=== PATIENT | male | born 1995 | race Caucasian/White ===

== ENCOUNTER 2019-11-02 15:22 | Emergency (ER) | payer OTHER, SELFPAY ==
--- NOTE | 2019-11-02 15:36 | XR_ITS ---
PROCEDURE: XR CHEST 2V CLINICAL HISTORY: cough COMPARISON: XR CHEST 2V from 07/06/2019 FINDINGS: The cardiomediastinal silhouette and pulmonary vascularity are within normal limits. The lungs are clear without infiltrates, suspicious nodules, or pleural effusions. No acute bony abnormalities. IMPRESSION: No acute findings. Dictated by: Chencho Goldberg MD 11/02/2019 15:57 Electronically signed by Chencho Goldberg MD in [place] 11/02/2019 15:57
[2019-11-02 15:39] VITALS: BP 135/84; PULSE 78; RESP 20; TEMP 36.7; O2SAT 99; BMI 23.0
[2019-11-02 15:58] LABS: UTC Influenza A Antigen Negative (Negative)
[2019-11-02 16:01] LABS: UTC Influenza B Antigen Negative (Negative)
[2019-11-02 16:02] LABS: UTC Strep Screen (Rapid) Negative (Negative)
--- NOTE | 2019-11-02 16:09 | HMH.EDUTC ---
[facility] [place] Disposition Clinical Impression: Exposure to COVID-19 virus, Viral syndrome Asthma Qualifiers: Asthma severity: unspecified severity Asthma persistence: unspecified Asthma complication type: unspecified Qualified Code(s): J45.909 - Unspecified asthma, uncomplicated Disposition: Home, Self-Care Condition on Discharge: Good Instructions: Asthma -- Adult, DI for Viral Syndrome, Preventing the Spread of Coronavirus Discharge Instructions Additional Instructions: Drink plenty of fluids. Take tylenol or ibuprofen for pain or fever. Take the medications as directed. Follow up with your regular doctor. GO TO THE ER FOR ANY WORSENING SYMPTOMS Prescriptions: Albuterol Sulfate [Proair Digihaler] 2 puffs IH Q6HP PRN 30 Days #1 aer.pw.bas PRN Reason: Shortness Of Breath Transmission Status: Received by [facility] # methylPREDNISolone [Medrol] 4 mg PO DIRECTED 6 Days #21 tab.ds.pk Transmission Status: Received by [facility] # Azithromycin [Z-Quinton 250mg Tab*] 250 mg PO UD DOSE PK #6 tab Transmission Status: Received by [facility] # Referrals: Provider,Referral, [Primary Care Provider] - Forms: Work/School Release Time of Disposition: 16:14 Medical Decision Making - Medical Records Medical records reviewed: No: I reviewed the patient's medical records. - Jay Inquiry Pt receiving controlled substance: No Vital Signs: 11/02/19 15:39 11/02/19 16:18 Temperature 98.1 F 98.1 F Temperature Source Oral Pulse Rate 78 Pulse Rate [Right Brachial] 78 Respiratory Rate 20 20 Blood Pressure 135/84 Blood Pressure [Right Arm] 135/84 Blood Pressure Mean [Right Arm] 101 Blood Pressure Source [Right Arm] Automatic Cuff Blood Pressure Position [Right Arm] Sitting 02 Sat by Pulse Oximetry 99 Oxygen Delivery Method Room Air - Lab Data Lab Results 11/02/19 15:36: Influenza Type A Ag Negative, Influenza Type B Ag Negative 11/02/19 15:36: Strep Scn Rapid Clinic Negative Orders (Tests/Meds): ORDERS Category Date Time Status SARS-CoV-2, BRAD Stat Lab 11/02/19 15:40 Received Strep Screen Confirmation Stat Micro 11/02/19 15:36 Received [facility] [place] HPI - General Stated complaint: SIB,Body Pain,expose COVid-Wk ago Time Seen by Provider: 11/02/19 15:40 Mode of Arrival: Ambulatory Source of Information: Patient Limitations: No Limitations Description of Symptoms (Recalled from Triage Doc. by RN): PATIENT C/O SHORTNESS OF BREATH WITH EXERTION, FEVER, BODY ACHES, AND FATIGUE SINCE YESTERDAY. STATES HE WORKS AT [employer] WHERE THERE WAS A POSITIVE CASE HEENT Symptoms (Recalled from RN notes): No Resp Symptoms (Recalled from RN notes): Yes Skin Symptoms (Recalled from RN notes): No MS Symptoms (Recalled from RN notes): Yes Functional Status (Recalled from RN notes): WNL - History of Present Illness Provider Complaint: He is here to be tested for COVID-19. He was exposed to COVID last week. He has had a fever up to 100.8 and had body aches for the past 2 days. He has a history of asthma. He denies any shortness of breath or chest pain. - Related Data Previous Rx's Medication Instructions Recorded Albuterol Sulfate [Proair 2 puffs IH Q6HP PRN 30 Days #1 11/02/19 Digihaler] aer.pw.bas Azithromycin [Z-Quinton 250mg Tab*] 250 mg PO UD DOSE PK #6 tab 11/02/19 methylPREDNISolone [Medrol] 4 mg PO DIRECTED 6 Days #21 11/02/19 tab.ds.pk Allergies Allergy/AdvReac Type Severity Reaction Status Date / Time No Known Allergies Allergy Verified 01/14/19 10:50 - Worker's Comp Is this a Worker's Comp case?: No [facility] History - Hepatitis A Screen Drug use history?: No High risk sexual behaviors?: No History of sexually transmitted infection?: No Currently employed?: No Childcare worker?: No Do you have indoor plumbing?: Yes Do you have electricity?: Yes Attestation statement:: This patient has been screened for Hepatitis A risk factors.
[2019-11-02 16:18] VITALS: BP 135/84; PULSE 78; RESP 20; TEMP 36.7; O2SAT 99
[2019-11-04 13:33] LABS: Covid-19 Nasal PCR Sendout Lex NOT DETECTED
== END 2019-11-02 16:22 | disposition home or self-care (01) ==
PROVIDERS: Emergency Provider Nurse Practitioner Family
DX: Z20.828 Contact with and (suspected) exposure to other viral communicable diseases (principal); B34.9 Viral infection, unspecified; J45.909 Unspecified asthma, uncomplicated
CPT/HCPCS: 71046; 87804; 87880; 99202; U0004

== ENCOUNTER 2020-01-06 14:17 | Emergency (ER) | payer OTHER, SELFPAY ==
[2020-01-06 14:19] VITALS: BP 139/83; BP 146/84; PULSE 121; PULSE 93; RESP 16; TEMP 37.6; O2SAT 100; O2SAT 99; BMI 23.8
[2020-01-06 14:35] LABS: Microscopic, Urine URINE MICROSCOPIC (MICROSCOPIC)
[2020-01-06 14:38] LABS: Appearance,Urine CLEAR (Clear); Blood, Urine TRACE-I (Negative); Color,Urine ORANGE (Yellow); Glucose,Urine (UA) Negative (Negative); Ketones,Urine Negative (Negative); Leukocyte Esterase,Urine Negative (Negative); Nitrate,Urine Negative (Negative); PH,Urine 6.5 (5.0-8.5); Protein,Urine Negative (Negative); Urobilinogen,Urine 0.2 EU/dl (0.2)
[2020-01-06 14:45] LABS: Basophils % 0.2 % (0.1-2.0); Eosinophils # 0.1 K/mm3 (0.0-0.4); Eosinophils % 0.5 % (0.1-12.0); Hematocrit 47.5 % (42.0-52.0); Hemoglobin 17.3 g/dL (14.1-18.0); Lymphocytes # 1.2 K/mm3 (0.7-4.5); Lymphocytes % 10.6 % (10-50); Mean Corpuscular HGB Conc 36.3 g/dL (31.8-35.4); Mean Corpuscular Hemoglobin 31.8 pg (27.0-31.2); Mean Corpuscular Volume 87.6 fl (80-94); Mean Platelet Volume 7.3 fl (7.4-10.4); Monocytes # 0.4 K/mm3 (0.1-1.0); Monocytes % 3.4 % (1.7-9.3); Neutrophils % 85.5 % (37.0-80.0); Platelet Count 225 K/mm3 (142-424); Red Blood Count 5.42 M/mm3 (4.60-6.20); Red Cell Distribution Width 12.7 % (11.5-17.5); White Blood Count 11.7 K/mm3 (4.8-10.8)
[2020-01-06 14:47] LABS: MANUAL DIFFERENTIAL MANUAL DIFFERENTIAL (MANUAL DIFF)
[2020-01-06 14:49] VITALS: BP 146/81; PULSE 85; O2SAT 99
[2020-01-06 14:49] LABS: Bilirubin,Urine 1+ (Negative)
[2020-01-06 14:50] LABS: Bacteria,Urine 2+ /lpf; Mucus,Urine 1+ /lpf; RBC,Urine Occasional #/hpf (0-3); Squamous Epithelial Cell,Urine Occasional #/hpf (0-5)
[2020-01-06 14:57] LABS: Chloride 103 mmol/L (98-107); Sodium 144 mmol/L (136-145)
[2020-01-06 14:58] LABS: Lymphocytes % 12 % (10-50); Monocytes % 4 % (2-9); Neutrophils % 84 % (42-76); Platelet Estimate Normal; Potassium 3.4 mmoL/L (3.5-5.1); RBC Morphology Normal; Total Cells Counted 100
--- NOTE | 2020-01-06 14:59 | CT_ITS ---
PROCEDURE: CT ABDOMEN PELVIS W CON CLINICAL INDICATION: abd pain Periumbilical pain with vomiting COMPARISON: CT CT ABDOMEN PELVIS WO CON from 06/25/2019 TECHNIQUE: IV Contrast: 75ML OPTIRAY 350 Oral Contrast None Axial images obtained with sagittal and coronal reformats. All CT scans at the facility use one or more dose reduction, viz: automated exposure control, ma/kV adjustment per patient size (including targeted exams where dose is matched to indication, i.e. head), or iterative reconstruction technique. FINDINGS: LOWER THORAX: No acute finding ABDOMEN & PELVIS: The liver and gallbladder have an unremarkable appearance. There is mild splenomegaly at 13 cm. Along the posterior aspect of the spleen there is a linear area of decreased attenuation which extends to the spleen surface. In the absence of trauma, this may represent a splenic cleft. A splenic laceration could have a similar appearance however, there is no perisplenic blood. The adrenal glands, pancreas, and kidneys have an unremarkable appearance. No renal or ureteral calculi. There is thickening of the urinary bladder which is nondistended. This thickening could be due to cystitis or nondistention. The appendix is upper normal measuring 6 mm in diameter proximally. This is not significantly changed from 06/25/2019. No stranding of the periappendiceal fat evident.. There is some thickening of the ascending colon hepatic flexure and proximal transverse colon which may be seen with colitis. No acute bony findings. IMPRESSION: 1. No evidence of appendicitis. The appendix is upper limits of normal but not significantly changed from 06/25/2019. 2. There is thickening of the ascending colon hepatic flexure and proximal transverse colon which may be seen with colitis 3. Thickening of the urinary bladder which could be due to cystitis and or nondistention. Dictated by: Chencho Goldberg MD 01/06/2020 16:14 Chencho Goldberg MD in [place] 01/06/2020 16:14
[2020-01-06 15:00] LABS: Alanine Aminotransferase 20 U/L (12-78); Alkaline Phosphatase 74 U/L (38-126); Amylase 66 U/L (30-110); Anion Gap 17.4 mEq/L (5-15); Aspartate Amino Transferase 31 U/L (17-59); Bilirubin,Total 1.1 mg/dl (0.2-1.3); Blood Urea Nitrogen 10 mg/dl (9-20); Carbon Dioxide 27 mmol/L (22.0-30.0); Creatinine Clearance Estimated 107 mL/min (50-200); Estimated Glomerular Filt Rate 106 ml/min (>60); GFR (African American) 128 ML/MIN (>60)
[2020-01-06 15:01] LABS: Albumin Level 5.1 g/dl (3.5-5.0); Albumin/Globulin Ratio 1.5 (1.1-1.8); Calcium 10.3 mg/dl (8.4-10.2); Globulin 3.4 g/dL (1.3-3.2); Glucose 106 mg/dl (74-100); Lipase 82 U/L (23-300); Total Protein,Serum 8.5 g/dl (6.3-8.2)
--- NOTE | 2020-01-06 15:13 | HMH.EDNVD ---
ED Disposition Clinical Impression: Viral syndrome, Colitis, Cystitis Disposition: Home, Self-Care Condition on Discharge: Fair Instructions: DI for Bacterial Gastroenteritis -- Adult Prescriptions: Ciprofloxacin HCl [Cipro 500mg Tab] 500 mg PO BID #14 tab Transmission Status: Pending to [facility] # Ondansetron [Zofran 4mg ODT] 4 mg PO BID #10 tab.rapdis Transmission Status: Pending to [facility] # Referrals: PCP,Cait [Primary Care Provider] - Jevon Osborne MD [Staff Physician] - - Critical Care Critical Care Time: No Attestation: On 01/06/20, the high probability of a clinically significant, sudden or life threatening deterioration of the following system(s) required my full and direct attention, intervention and personal management. The time I documented below is in addition to time spent performing reported procedures but includes the following listed in this critical care notation. Medical Decision Making - Medical Records Medical records reviewed: Yes: I reviewed the patient's medical records. - Jay Inquiry Pt receiving controlled substance: No Vital Signs: 01/06/20 14:19 01/06/20 14:49 01/06/20 15:49 Temperature 99.6 F Temperature Source Oral Pulse Rate [Left Radial] 93 H 85 82 Respiratory Rate 16 16 Blood Pressure [Right Arm] 139/83 146/81 H 122/68 Blood Pressure Mean [Right Arm] 101 102 86 Blood Pressure Source [Right Arm] Automatic Cuff Automatic Cuff Automatic Cuff Blood Pressure Position [Right Arm] Supine Supine Supine 02 Sat by Pulse Oximetry 100 99 98 Oxygen Delivery Method Room Air Room Air Room Air 01/06/20 16:00 Temperature Temperature Source Pulse Rate [Left Radial] 86 Respiratory Rate Blood Pressure [Right Arm] 133/66 Blood Pressure Mean [Right Arm] 88 Blood Pressure Source [Right Arm] Automatic Cuff Blood Pressure Position [Right Arm] Supine 02 Sat by Pulse Oximetry 98 Oxygen Delivery Method Room Air - Lab Data Lab Results 01/06/20 14:25: Urine Color [place], Urine Appearance Clear, Urine pH 6.5, Ur Specific [place] 1.020, Urine Protein Negative, Urine Glucose (UA) Negative, Urine Ketones Negative, Urine Blood Trace-i, Urine Nitrate Negative, Urine Bilirubin 1+ A, Urine Urobilinogen 0.2, Ur Leukocyte Esterase Negative, Urine RBC Occasional, Urine WBC None, Ur Squamous Epith Cells Occasional, Urine Bacteria 2+, Urine Mucus 1+ 01/06/20 14:30: WBC 11.7 H, RBC 5.42, Hgb 17.3, Hct 47.5, MCV 87.6, MCH 31.8 H, MCHC 36.3 H, RDW 12.7, Plt Count 225, MPV 7.3 L, Neut % (Auto) 85.5 H, Lymph % (Auto) 10.6, [place] % (Auto) 3.4, Eos % (Auto) 0.5, Baso % (Auto) 0.2, Neut # (Auto) 10.0 H, Lymph # (Auto) 1.2, [place] # (Auto) 0.4, Eos # (Auto) 0.1, Baso # (Auto) 0.0, Total Counted 100, Neutrophils % (Manual) 84 H, Lymphocytes % (Manual) 12, Monocytes % (Manual) 4, Platelet Estimate Normal, RBC Morphology Normal 01/06/20 14:30: Sodium 144, Potassium 3.4 L, Chloride 103, Carbon Dioxide 27, Anion Gap 17.4 H, BUN 10, Creatinine 0.90, Estimated Creat Clear 107, Estimated GFR 106, Est GFR ( Amer) 128, Glucose 106 H, Calcium 10.3 H, Total Bilirubin 1.1, AST 31, ALT 20, Alkaline Phosphatase 74, Total Protein 8.5 H, Albumin 5.1 H, Globulin 3.4 H, Albumin/Globulin Ratio 1.5, Amylase 66, Lipase 82 Result diagrams: 01/06/20 14:30 01/06/20 14:30 Orders (Tests/Meds): ED MEDICATIONS Discontinued Medications Generic Name Dose Route Start Last Admin Trade Name Freq PRN Reason Stop Dose Admin Sodium Chloride 1,000 mls @ 999 mls/hr 01/06/20 14:45 01/06/20 14:35 Sod Chlor 0.9% 1000ml Bag IV 01/06/20 15:45 999 mls/hr .Q1H1M FRANCISCO Administration Ioversol 75 ml 01/06/20 15:43 01/06/20 15:44 Rad-Optiray 350 100ml Vial IV 01/06/20 15:44 75 ml ONCE ONE Administration Protocol Ketorolac Tromethamine 30 mg 01/06/20 14:33 01/06/20 14:36 Toradol 30mg/Ml Vial IM 01/06/20 14:34 Not Given ONCE ONE Ketorolac Tromethamine
[2020-01-06 15:49] VITALS: BP 122/68; PULSE 82; RESP 16; O2SAT 98
[2020-01-06 16:00] VITALS: BP 133/66; PULSE 86; O2SAT 98
[2020-01-06 16:47] VITALS: BP 131/78; PULSE 84; RESP 16; TEMP 36.6; O2SAT 98
== END 2020-01-06 16:48 | disposition home or self-care (01) ==
PROVIDERS: Emergency Provider Emergency Medicine
DX: B34.9 Viral infection, unspecified (principal); N30.00 Acute cystitis without hematuria; Z90.09 Acquired absence of other part of head and neck
CPT/HCPCS: 74177; 80053; 81001; 82150; 83690; 85007; 85025; 87086; 96365; 96375; 99284; J2405; Q9967

== ENCOUNTER 2020-12-26 20:01 | Emergency (ER) | payer OTHER, SELFPAY ==
[2020-12-26 21:05] VITALS: BP 135/65; PULSE 86; RESP 17; TEMP 37.5; O2SAT 98; BMI 24.0
[2020-12-26 21:10] VITALS: BP 135/65; PULSE 86; RESP 17; TEMP 37.5; O2SAT 98
--- NOTE | 2020-12-26 21:23 | HMH.EDUTC ---
[facility] [place] [facility] [place] Clinical Impression: Viral syndrome, Exposure to COVID-19 virus Disposition: Home, Self-Care Condition on Discharge: Good Instructions: DI for COVID-19 (Suspected or Confirmed ), Preventing the Spread of Coronavirus Discharge Instructions Additional Instructions: Drink plenty of fluids. Take tylenol or ibuprofen for pain or fever. Take the medications as directed. Follow up with your regular doctor. GO TO THE ER FOR ANY WORSENING SYMPTOMS Quarantine until you know the results of your covid-19 test. If it is positive, the health department should call you and give you further instructions about your length of Quarantine and other thing. Prescriptions: Albuterol Sulfate [Albuterol Sulfate Hfa] 2 puffs IH Q6HP PRN 30 Days #1 hfa.aer.ad PRN Reason: Shortness Of Breath Transmission Status: Received by [facility] # methylPREDNISolone [Medrol] 4 mg PO DIRECTED 6 Days #21 tab.ds.pk Transmission Status: Received by [facility] # Azithromycin [Z-Quinton 250mg Tab*] 250 mg PO UD DOSE PK #6 tab Transmission Status: Received by [facility] # Referrals: Provider,Referral, [Primary Care Provider] - Time of Disposition: 21:26 Medical Decision Making - Medical Records Medical records reviewed: No: I reviewed the patient's medical records. - Jay Inquiry Pt receiving controlled substance: No Vital Signs: 12/26/20 21:05 12/26/20 21:10 Temperature 99.5 F 99.5 F Temperature Source Oral Pulse Rate 86 Pulse Rate [Left] 86 Respiratory Rate 17 17 Blood Pressure 135/65 Blood Pressure [Right Arm] 135/65 Blood Pressure Mean [Right Arm] 88 02 Sat by Pulse Oximetry 98 Orders (Tests/Meds): ORDERS Category Date Time Status Covid-19 Nasal PCR ([facility]) Routine Lab 12/26/20 20:49 Received [facility] [place] [facility] [place]PI - General Stated complaint: covid test Time Seen by Provider: 12/26/20 21:23 Mode of Arrival: Ambulatory Source of Information: Patient Limitations: No Limitations Description of Symptoms (Recalled from Triage Doc. by RN): COVID TESTING- HEADACHE, SOB, FEVER, BODY ACHES HEENT Symptoms (Recalled from RN notes): No Resp Symptoms (Recalled from RN notes): Yes Skin Symptoms (Recalled from RN notes): No MS Symptoms (Recalled from RN notes): No Functional Status (Recalled from RN notes): WNL - History of Present Illness Provider Complaint: He states that he has felt bad and ran a fever up to 100.5 all day. He was exposed to covid by his coworker having it last week. He also has a cough and mild shortness of breath. He has a history of asthma, but he says he has not been wheezing any. He denies nausea/vomiting, but he has had diarrhea. - Related Data Previous Rx's Medication Instructions Recorded Ciprofloxacin HCl [Cipro 500mg 500 mg PO BID #14 tab 01/06/20 Tab] Ondansetron [Zofran 4mg ODT] 4 mg PO BID #10 tab.rapdis 01/06/20 Albuterol Sulfate [Albuterol 2 puffs IH Q6HP PRN 30 Days #1 12/26/20 Sulfate Hfa] hfa.aer.ad Azithromycin [Z-Quinton 250mg Tab*] 250 mg PO UD DOSE PK #6 tab 12/26/20 methylPREDNISolone [Medrol] 4 mg PO DIRECTED 6 Days #21 12/26/20 tab.ds.pk Allergies Allergy/AdvReac Type Severity Reaction Status Date / Time No Known Allergies Allergy Verified 12/26/20 21:08 - Worker's Comp Is this a Worker's Comp case?: No [facility] History - Hepatitis A Screen Drug use history?: No High risk sexual behaviors?: No History of sexually transmitted infection?: No Currently employed?: No Childcare worker?: No Do you have indoor plumbing?: Yes Do you have electricity?: Yes Attestation statement:: This patient has been screened for Hepatitis A risk factors. I have reviewed the patient's past medical history: Yes Medical History: Denies:: Cancer, Diabetes Mellitus Type 1, Diabetes Mellitus Type 2, Internal Pacemaker, MRSA, Seizures Other Medical History: Denies: Blood Transfusion Reaction Laterality
--- NOTE | 2020-12-27 11:17 | PC.NURSE ---
PT NOTIFIED OF POSITIVE COVID TEST RESULTS
== END 2020-12-26 21:35 | disposition home or self-care (01) ==
PROVIDERS: Emergency Provider Nurse Practitioner Family
DX: U07.1 COVID-19 (principal); J45.909 Unspecified asthma, uncomplicated; B34.9 Viral infection, unspecified
CPT/HCPCS: 99202; G0463; U0003

== ENCOUNTER 2021-03-16 14:11 | Emergency (ER) | payer OTHER, SELFPAY ==
[2021-03-16 14:20] VITALS: BP 154/85; PULSE 92; RESP 16; TEMP 37; O2SAT 99; BMI 25.6
--- NOTE | 2021-03-16 14:37 | HMH.EDUTC ---
[facility] [place] Clinical Impression: Sinusitis Qualifiers: Sinusitis location: unspecified location Chronicity: unspecified Qualified Code(s): J32.9 - Chronic sinusitis, unspecified Disposition: Home, Self-Care Condition on Discharge: Good Instructions: Sinusitis, DI for Sinusitis Additional Instructions: ? Start antibiotic today. Be sure to complete entire prescription even if feeling better ? Monitor temp. Tylenol every 4 hours as needed and / or ibuprofen every 6 hours as needed ( As long as your primary care physician has told you that it ok to take both. For fever/aches/pains ER if no less than 101 despite Tylenol or Motrin ? Humidifier/vaporizer or hot steamy shower *Start steroid today. Helps with inflammation therefore, cough and wheezing. Follow directions on the package. Reviewed side effects. Patient reports taking them before. Follow up IMMEDIATELY for new or worsening of symptoms OR no noticeable improvement over the next 48-72 hours. 911 immediately for any life threatening symptoms such as chest pain or difficulty breathing Prescriptions: Fluticasone Propionate [Flonase 50mcg nasal spray 16gm] 1 spr NS DAILY #1 each Transmission Status: Pending to [facility] # methylPREDNISolone [Medrol 4mg tab] 4 mg PO DIRECTED #21 tab Transmission Status: Pending to [facility] # Azithromycin [Z-Quinton 250mg Tab] 250 mg PO DIRECTED #6 tab Transmission Status: Pending to [facility] # Referrals: Provider,Referral, MD [Primary Care Provider] - As needed Forms: Work/School Release Time of Disposition: 14:49 Medical Decision Making - Jay Inquiry Pt receiving controlled substance: No Jay was queried for this patient: No Vital Signs: 03/16/21 14:20 Temperature 98.6 F Temperature Source Oral Pulse Rate [Left] 92 H Respiratory Rate 16 Blood Pressure [Right Arm] 154/85 H Blood Pressure Mean [Right Arm] 108 02 Sat by Pulse Oximetry 99 Orders (Tests/Meds): ORDERS Category Date Time Status Covid-19 Nasal PCR ([facility]) Routine Lab 03/16/21 14:28 Ordered [facility] [place] HPI - General Stated complaint: sore throat, congestion, cough, body aches Time Seen by Provider: 03/16/21 14:37 Mode of Arrival: Ambulatory Source of Information: Patient Limitations: No Limitations Description of Symptoms (Recalled from Triage Doc. by RN): pt c/o dizziness, CHAVEZ, sore throat, congestion, runny nose, body aches and CHAVEZ. x2 days. work wants him tested for covid. HEENT Symptoms (Recalled from RN notes): Yes (dizzy, CHAVEZ, sore throat, congestion and drainage) Resp Symptoms (Recalled from RN notes): No Skin Symptoms (Recalled from RN notes): No MS Symptoms (Recalled from RN notes): No Functional Status (Recalled from RN notes): body aches - History of Present Illness Provider Complaint: Patient states that he started having sinus congestion and pressure last week that has come and gone State that for the last couple of days it has been back and keeps getting worse States that he is having pressure like feeling behind his eyes, headache, body aches chills an over all does not feel well States that he feels like it may be sinus infection but work wants him to get tested for COVID - Related Data Previous Rx's Medication Instructions Recorded Ciprofloxacin HCl [Cipro 500mg 500 mg PO BID #14 tab 01/06/20 Tab] Ondansetron [Zofran 4mg ODT] 4 mg PO BID #10 tab.rapdis 01/06/20 Albuterol Sulfate [Albuterol 2 puffs IH Q6HP PRN 30 Days #1 12/26/20 Sulfate Hfa] hfa.aer.ad Azithromycin [Z-Quinton 250mg Tab*] 250 mg PO UD DOSE PK #6 tab 12/26/20 methylPREDNISolone [Medrol] 4 mg PO DIRECTED 6 Days #21 12/26/20 tab.ds.pk Azithromycin [Z-Quinton 250mg Tab] 250 mg PO DIRECTED #6 tab 03/16/21 Fluticasone Propionate [Flonase 1 spr NS DAILY #1 each 03/16/21 50mcg nasal spray 16gm] methylPREDNISolone [Medrol 4mg 4 mg PO DIRECTED #21 tab 03/16/21 tab] Allergies Allergy/
[2021-03-16 15:04] VITALS: BP 154/85; PULSE 92; RESP 18; TEMP 37
== END 2021-03-16 15:04 | disposition home or self-care (01) ==
PROVIDERS: Emergency Provider Nurse Practitioner
DX: J32.9 Chronic sinusitis, unspecified (principal); Z20.822 Contact with and (suspected) exposure to COVID-19
CPT/HCPCS: 99202; C9803; G0463; U0003; U0005

== ENCOUNTER 2023-04-04 11:45 | Emergency (ER) | payer OTHER, SELFPAY ==
[2023-04-04 12:05] VITALS: BP 132/82; PULSE 90; RESP 19; TEMP 37.2; O2SAT 98; BMI 24.0
--- NOTE | 2023-04-04 12:16 | EXP.UTC ---
Discharge Plan Disposition Patient Disposition: Home, Self-Care Condition: Good Prescriptions Prescriptions: New methylprednisolone [Medrol (Quinton)] 4 mg tablets,dose pack See Rx Instructions .Route .COMPLEX 6 Days Qty: 21 0RF Rx Instructions: taper pack; amoxicillin-pot clavulanate 875-125 mg Tablet 1 tab PO Q12H Qty: 20 0RF guaifenesin [Mucinex] 600 mg tablet extended release 12hr 1,200 mg PO BID PRN (Reason: cough) Qty: 20 0RF Referrals Follow up/Referrals: Provider,Referral, MD [Primary Care Provider] - See instructions Activity Restrictions/Add. Instructions Additional Instructions/Restrictions: *Monitor Temp, Over the counter Motrin or Tylenol as directed/as needed Tylenol every 4 hours and Motrin every 6 hours (as long as your family doctor has told you that you can take it) for fever or pain. and straight to ER if unable to lower temp less than 101.0 after medication given *Warm salt water gargles may help to soothe the throat *Throat Lozenges? *Warm fluids like tea with honey may help to soothe the throat? *Sleep elevated *Humidifier/Vaporizer Follow up IMMEDIATELY for new or worsening symptoms or no Noticeable improvement over the next 48-72 hours. 911 for difficulty breathing or swallowing Clinical Impressions Clinical Impression: Sinusitis Qualifiers: Sinusitis location: unspecified location Chronicity: unspecified Qualified Code(s): J32.9 - Chronic sinusitis, unspecified Stand Alone Forms Stand Alone Forms: Work/School Release Instructions Patient Instructions: DI for Sinusitis, Sinusitis Discharge ED Provider: Bethany Do [facility] [place] General Stated complaint: sinus causing facial pressure, cough Time Seen by Provider: 04/04/23 12:16 History of Present Illness Provider Complaint: Patient states for the last week he has been having sinus pain and pressure worse on the right side, States that he thought it may have started with pain in his tooth but now the right side of his face is sore and he has been having pain and pressure in his right ear and his 'snot went from clear to thick yellowish green and feels like it is draining in his his throat and he will cough it up sometimes Related Data Previous Rx's Medication Instructions Recorded amoxicillin 875 mg-potassium 1 tab PO Q12H #20 tabs 04/04/23 clavulanate 125 mg tablet guaifenesin 600 mg tablet, 1,200 mg PO BID PRN cough #20 tabs 04/04/23 extended release 12 hr (Mucinex) methylprednisolone 4 mg tablets in See Rx Instructions .Route 04/04/23 a dose pack (Medrol (Quinton)) .COMPLEX 6 days #21 tabs Allergies Allergy/AdvReac Type Severity Reaction Status Date / Time No Known Allergies Allergy Verified 12/26/20 21:08 [facility] Disclaimer: The information contained in this section may have been updated after the patient was seen, as this information can be updated by other users. Social History Smoking Status: Never smoker second hand exposure: No alcohol intake: never substance use type: denies use current occupational status: other Travel in the last 8 weeks: None household members: other housing: other current occupation: [employer] current occupational exposures/hazards: No caffeine: Yes ROS Obtained: Yes All systems reviewed & no additional complaints except as documented and Yes Systems reviewed as appropriate & no additional complaints except as documented Constitutional Constitutional: Reports system reviewed and no additional complaints, except as documented, Reports as per HPI and Reports headache(s) ENT Ears, Nose, Mouth, and Throat: Reports system reviewed and no additional complaints, except as documented, Reports as per HPI, Reports otalgia, Reports headache(s), Reports sinus pain and Reports sinus pressure Cardiovascular Cardiovascular: Reports system reviewed and no additional complaints, except as documented and Reports a
[2023-04-04 12:31] VITALS: BP 132/82; PULSE 90; RESP 19; TEMP 37.2; O2SAT 98
== END 2023-04-04 12:34 | disposition home or self-care (01) ==
PROVIDERS: Emergency Provider Nurse Practitioner
DX: J01.90 Acute sinusitis, unspecified (principal); R05.9 Cough, unspecified; R09.82 Postnasal drip
CPT/HCPCS: 99212; 99214; G0463